=== PATIENT | female | born 2000 | race Caucasian/White ===

== ENCOUNTER 2020-03-04 20:09 | Emergency (ER) | payer OTHER ==
[~2020-03-04 20:09] MED LIST: ATARAX25 MG PO; NORCO 5-325 TA1 EACH PO; PERCOCET 5-3251 EACH PO; XULANE PATCH1 EACH TD
[2020-03-04] MEDS ORDERED: MEDROL 4MG DOSEP4 MG PO (21:58)
== END 2020-03-04 22:14 | disposition home or self-care (01) ==
LOC: FER 20:09
DX: M77.51 Other enthesopathy of right foot and ankle (principal); M79.661 Pain in right lower leg
CPT/HCPCS: 93971; J7512